=== PATIENT | female | born 1960 ===

== ENCOUNTER 2019-06-01 14:14 | Emergency (ER) | payer OTHER ==
[~2019-06-01] VITALS: Ht 162.6 cm; Wt 102.1 kg
[2019-06-01] MEDS ORDERED: ZESTRIL40 M1 (15:01)
[2019-06-01] MEDS ORDERED: MICROZIDE12.5 MG (15:01)
== END 2019-06-01 17:27 | disposition home or self-care (01) ==
LOC: ER 14:14
DX: S00.03XA Contusion of scalp, initial encounter (principal); S20.222A Contusion of left back wall of thorax, initial encounter; S40.022A Contusion of left upper arm, initial encounter; S40.021A Contusion of right upper arm, initial encounter; M54.2 Cervicalgia; W18.09XA Striking against other object with subsequent fall, initial encounter; Y93.89 Activity, other specified; Y92.89 Other specified places as the place of occurrence of the external cause; Y99.8 Other external cause status